=== PATIENT | male | born 1985 | race Two or more races ===

== ENCOUNTER → 2018-11-10 | Outpatient (CLI) | payer OTHER ==
[2018-11-10 13:05] LABS: ALBUMIN 3.8 GM/DL (3.2-5.2); ALT/SGPT 29 U/L (12-78); BILIRUBIN,TOTAL 0.7 MG/DL (0.2-1.0); BLOOD UREA NITROGEN 17 MG/DL (7-18); CALCIUM LEVEL 8.6 MG/DL (8.5-10.1); CARBON DIOXIDE LEVEL 31 MEQ/L (21-32); CHLORIDE LEVEL 110 MEQ/L (98-107); CHOLESTEROL LEVEL 154 MG/DL (<200); CHOLESTEROL RISK RATIO 2.961 (<5); CREATININE FOR GFR 0.72 MG/DL (0.70-1.30); GLOMERULAR FILTRATION RATE > 60.0 (>60); GLUCOSE, FASTING 85 MG/DL (70-100); HDL CHOLESTEROL 52 MG/DL (>40); LDL CHOLESTEROL 83 MG/DL (<100); NON-HDL-C 102 MG/DL; POTASSIUM SERUM 4.7 MEQ/L (3.5-5.1); SODIUM LEVEL 143 MEQ/L (136-145); TOTAL PROTEIN 7.1 GM/DL (6.4-8.2); TRIGLYCERIDES LEVEL 94 MG/DL (<150)
[2018-11-10 13:56] LABS: HEMOGLOBIN A1c 4.9 %
== END ==
LOC: M WUC 10:38
PROVIDERS: ATTEND Physician Assistant Medical
DX: Z00.00 Encounter for general adult medical examination without abnormal findings (principal)

== ENCOUNTER 2019-04-06 14:05 | Emergency (ER) | payer OTHER ==
[~2019-04-06] VITALS: Ht 165.1 cm; Wt 88.9 kg
[2019-04-06] MEDS ORDERED: OMEP40CA97 PO (15:00)
--- NOTE | 2019-04-06 15:14 | REP ---
Four views mandible: 04/07/2019 Indication: Mandibular trauma. Comparison: None. Findings: There is no evidence of mandibular fracture. The TMJs are unremarkable without subluxation/dislocation. No additional facial bone fractures are detected. The paranasal sinuses are clear. Impression: No mandibular fracture. Electronically Signed by Michael Diamond DO 04/06/2019 03:05 P
[2019-04-06] MEDS ORDERED: ACETAMINOPHEN 325 MG TAB PO ONE (15:15)
--- NOTE | 2019-04-06 15:16 | REP ---
Four views right hand: 04/07/2019. Indication: Right hand trauma. Comparison: None. Findings: There is no acute fracture, subluxation or dislocation. No significant osseous destructive lesions are present. Alignment is normal. Joint spaces are unremarkable. Impression: No acute fracture. Electronically Signed by Michael Diamond DO 04/06/2019 03:08 P
--- NOTE | 2019-04-06 15:18 | REP ---
Four views right wrist: 04/07/2019. Indication: Right wrist trauma. Comparison: None. Findings: There is no acute fracture, subluxation or dislocation. Osseous alignment is normal. No osseous destructive lesions are present. Joint spaces are unremarkable. Impression: No acute fracture. Electronically Signed by Michael Diamond DO 04/06/2019 03:10 P
[2019-04-06 16:03] VITALS: BP 114/84
[2019-04-06] MEDS ORDERED: NAPR-837 PO (16:12)
[2019-04-06] MEDS ORDERED: CYCL10TA PO (16:12)
== END 2019-04-06 16:24 | disposition home or self-care (01) ==
LOC: M ED 14:05
DX: S13.4XXA Sprain of ligaments of cervical spine, initial encounter (principal); S63.501A Unspecified sprain of right wrist, initial encounter; S03.42XA Sprain of jaw, left side, initial encounter; V43.52XA Car driver injured in collision with other type car in traffic accident, initial encounter; Y92.9 Unspecified place or not applicable; Y93.9 Activity, unspecified; Y99.9 Unspecified external cause status; Z79.899 Other long term (current) drug therapy

== ENCOUNTER 2021-01-17 17:10 | Emergency (ER) | payer OTHER ==
[~2021-01-17] VITALS: Ht 165.1 cm; Wt 90.4 kg
[~2021-01-17 17:10] MED LIST: CYCL-707 PO; NAPR-837 PO; OMEP40CA4 PO
[2021-01-17] MEDS ORDERED: OMEP-221 (17:18)
[2021-01-17] MEDS ORDERED: CETI10CA2 PO (17:18)
[2021-01-17] MEDS ORDERED: CYCL-707 PO (18:23)
[2021-01-17] MEDS ORDERED: MEDR4PAK PO (18:23)
--- NOTE | 2021-01-17 18:30 | REP ---
INDICATION: numbness left leg. COMPARISON: None. TECHNIQUE: Five views of the lumbar spine were obtained. FINDINGS: There is maintenance of the normal lumbar lordosis. There is degenerative disc disease, L4-5 and L5-S1 with narrowing of the disc spaces and marginal osteophytes. There is 3 mm of degenerative retrolisthesis of L5 on S1. There are no compression fractures. The SI joints are normal. The perivertebral soft tissues are normal. IMPRESSION: 1. Degenerative disc disease, L4-5 and L5-S1. 2. Spondylosis with degenerative grade 1 retrolisthesis, L5 on S1. <Electronically signed by Papa Valverde > 01/17/21 [id number]
[2021-01-17 18:59] VITALS: BP 128/84
== END 2021-01-17 19:05 | disposition home or self-care (01) ==
LOC: M ED 17:10
DX: M54.42 Lumbago with sciatica, left side (principal); M47.816 Spondylosis without myelopathy or radiculopathy, lumbar region; M51.37 Other intervertebral disc degeneration, lumbosacral region; K21.9 Gastro-esophageal reflux disease without esophagitis; Z79.899 Other long term (current) drug therapy

== ENCOUNTER → 2021-10-22 | Outpatient (CLI) | payer OTHER ==
[~2021-10-22] MED LIST changes: +CETI10CA2 PO; +MEDR4PAK PO; +OMEP40CA5
[2021-10-22 16:51] LABS: BASO % 0.5 % (0.0-1.0); EOS # 0.4 10^3/uL (0.0-0.5); EOS % 7.1 % (0.0-3.0); HEMATOCRIT 42.3 % (42.0-52.0); HEMOGLOBIN 14.9 g/dl (13.5-17.5); LYMPH # 2.2 10^3/uL (1.5-5.0); LYMPH % 37.1 % (24.0-44.0); MEAN CORPUSCULAR HEMOGLOBIN 32.2 pg (27.0-33.0); MEAN CORPUSCULAR HGB CONC 35.2 g/dl (32.0-36.5); MEAN CORPUSCULAR VOLUME 91.4 fl (80.0-96.0); MONO # 0.4 10^3/uL (0.0-0.8); MONO % 6.7 % (2.0-8.0); NEUTROPHILS # 2.9 10^3/uL (1.5-8.5); NEUTROPHILS % 48.3 % (36.0-66.0); PLATELET COUNT, AUTOMATED 255 10^3/uL (150-450); RED BLOOD COUNT 4.63 10^6/uL (4.30-6.10)
[2021-10-22 17:37] LABS: ALBUMIN 4.3 GM/DL (3.2-5.2); ALT/SGPT 31 U/L (12-78); BILIRUBIN,TOTAL 0.8 MG/DL (0.2-1.0); BLOOD UREA NITROGEN 13 MG/DL (7-18); CALCIUM LEVEL 9.1 MG/DL (8.5-10.1); CARBON DIOXIDE LEVEL 29 MEQ/L (21-32); CHLORIDE LEVEL 110 MEQ/L (98-107); CREATININE FOR GFR 0.86 MG/DL (0.70-1.30); GLOMERULAR FILTRATION RATE > 60.0 (>60); GLUCOSE, FASTING 98 MG/DL (70-100); POTASSIUM SERUM 3.8 MEQ/L (3.5-5.1); SODIUM LEVEL 143 MEQ/L (136-145); TOTAL PROTEIN 7.3 GM/DL (6.4-8.2)
== END ==
LOC: M WUC 13:36
PROVIDERS: ATTEND Nurse Practitioner Family
DX: R10.13 Epigastric pain (principal); K21.9 Gastro-esophageal reflux disease without esophagitis

== ENCOUNTER → 2022-02-25 | Outpatient (CLI) | payer OTHER ==
[~2022-02-25] MED LIST changes: +FLON1SPR; +PANT40TA29 PO
== END ==
LOC: M LABSMTC 11:23
PROVIDERS: ATTEND Anesthesiology
DX: Z01.818 Encounter for other preprocedural examination (principal); Z11.52 Encounter for screening for COVID-19

== ENCOUNTER 2022-03-02 11:39 | Day surgery (SDC) | payer OTHER ==
[~2022-03-02] VITALS: Ht 162.6 cm; Wt 86.1 kg
[~2022-03-02 11:39] MED LIST changes: +LIDOCAINE 2% 100MG/5ML SDV (FOR ANES.) As Ordered ONE; +NS 1,000 ML IV ONE; +fentaNYL 100 MCG/2 ML INJECTION As Ordered ONE; +propofoL 200 MG/20 ML VIAL As Ordered ONE
[2022-03-02 14:52] VITALS: BP 122/77
== END 2022-03-02 15:00 | disposition home or self-care (01) ==
LOC: M OPP 11:39
PROVIDERS: ATTEND Internal Medicine Gastroenterology
DX: J38.1 Polyp of vocal cord and larynx (principal); K21.00 Gastro-esophageal reflux disease with esophagitis, without bleeding; K29.70 Gastritis, unspecified, without bleeding; K30 Functional dyspepsia; Z79.1 Long term (current) use of non-steroidal anti-inflammatories (NSAID); Z79.51 Long term (current) use of inhaled steroids; Z79.899 Other long term (current) drug therapy
CPT/HCPCS: 43239; 88305; J3010

== ENCOUNTER → 2023-08-07 | Outpatient (REF) | payer OTHER ==
[~2023-08-07] MED LIST changes: -LIDOCAINE 2% 100MG/5ML SDV (FOR ANES.) As Ordered ONE; -NS 1,000 ML IV ONE; -fentaNYL 100 MCG/2 ML INJECTION As Ordered ONE; -propofoL 200 MG/20 ML VIAL As Ordered ONE
[2023-08-07 18:48] LABS: RSV AMPLIFICATION NEGATIVE (NEGATIVE)
== END ==
LOC: M LAB REF 17:12
PROVIDERS: ATTEND Physician Assistant
DX: J06.9 Acute upper respiratory infection, unspecified (principal)

== ENCOUNTER → 2024-08-03 | Outpatient (CLI) | payer OTHER ==
[2024-08-03 14:14] LABS: BASO % 0.6 % (0.0-1.0); EOS # 0.4 10^3/uL (0.0-0.5); EOS % 6.3 % (0.0-3.0); HEMATOCRIT 43.3 % (42.0-52.0); HEMOGLOBIN 15.2 g/dl (13.5-17.5); LYMPH # 2.7 10^3/uL (1.5-5.0); LYMPH % 43.2 % (24.0-44.0); MEAN CORPUSCULAR HEMOGLOBIN 31.8 pg (27.0-33.0); MEAN CORPUSCULAR HGB CONC 35.1 g/dl (32.0-36.5); MEAN CORPUSCULAR VOLUME 90.6 fl (80.0-96.0); MONO # 0.4 10^3/uL (0.0-0.8); MONO % 6.3 % (2.0-8.0); NEUTROPHILS # 2.7 10^3/uL (1.5-8.5); NEUTROPHILS % 43.4 % (36.0-66.0); PLATELET COUNT, AUTOMATED 261 10^3/uL (150-450); RED BLOOD COUNT 4.78 10^6/uL (4.30-6.10); WHITE BLOOD COUNT 6.2 10^3/uL (4.0-10.0)
[2024-08-03 14:48] LABS: ALKALINE PHOSPHATASE 55 U/L (40-129); ALT/SGPT 23 U/L (7.0-40); AST/SGOT 12 U/L (<34); BILIRUBIN,TOTAL 0.8 MG/DL (0.3-1.2); BLOOD UREA NITROGEN 10 MG/DL (9-23); CALCIUM LEVEL 9.2 MG/DL (8.5-10.1); CARBON DIOXIDE LEVEL 30 MMOL/L (20-31); CHLORIDE LEVEL 110 MMOL/L (98-107); CHOLESTEROL LEVEL 176 MG/DL (<200); CHOLESTEROL RISK RATIO 3.49 (<5); CREATININE FOR GFR 0.75 MG/DL (0.70-1.30); GLOMERULAR FILTRATION RATE > 60.0 (>60); GLUCOSE, FASTING 85 MG/DL (60-100); HDL CHOLESTEROL 50.4 MG/DL (>40); LDL CHOLESTEROL 75.4 MG/DL (<100); NON-HDL-C 125.6 MG/DL; POTASSIUM SERUM 4.5 MMOL/L (3.5-5.1); SODIUM LEVEL 142 MMOL/L (136-145); TOTAL PROTEIN 7.2 G/DL (5.7-8.2); TRIGLYCERIDES LEVEL 251 MG/DL (<150)
== END ==
LOC: M LAB 13:45
PROVIDERS: ATTEND Registered Nurse
DX: Z00.00 Encounter for general adult medical examination without abnormal findings (principal)